=== PATIENT | male | born 1965 | race Caucasian/White ===

== ENCOUNTER 2021-05-03 20:57 | Emergency (ER) | payer MEDICAID ==
[2021-05-03] MEDS ORDERED: Diphtheria,Pertussis(Acell),Tetanus Vaccine 0.5 ML Syringe IM ONE (22:26)
[2021-05-03] MEDS ORDERED: Bacitracin/Neomycin/Polymyxin B Oint 0.9 GM U/D Packet TOP ONE (22:26)
--- NOTE | 2021-05-03 22:29 | EDM.PDOC ---
ED HPI GENERAL MEDICAL PROBLEM - General Chief Complaint: Laceration Stated Complaint: hand laceration Time Seen by Provider: 05/03/21 21:38 Source of Information: Reports: Patient History Limitations: Reports: No Limitations - History of Present Illness INITIAL COMMENTS - FREE TEXT/NARRATIVE: Patient hit self on back of right hand with a hammer and split the skin open. No loss of function/sensation. Is on a blood thinner. Tetanus updated 10 years ago. No other injuries. - Related Data Allergies Allergy/AdvReac Type Severity Reaction Status Date / Time No Known Allergies Allergy Verified 05/03/21 20:59 Home Meds: Home Meds Simvastatin [Zocor] 40 mg PO BEDTIME 09/23/17 [History] amLODIPine [Norvasc] 2.5 mg PO BEDTIME 09/23/17 [History] Aspirin [Aspirin EC] 1 tab PO DAILY 05/03/21 [History] Montelukast [Singulair] 1 tab PO BEDTIME 05/03/21 [History] Ticagrelor [Brilinta] 1 tab PO DAILY 05/03/21 [History] carvediloL [Carvedilol] 1 tab PO BID 05/03/21 [History] hydroCHLOROthiazide [Hydrochlorothiazide] 1 tab PO DAILY 05/03/21 [History] Past Medical History Cardiovascular History: Reports: High Cholesterol, Hypertension Social & Family History - Tobacco Use Tobacco Use Status *Q: Never Tobacco User Second Hand Smoke Exposure: No - Caffeine Use Caffeine Use: Reports: Coffee - Recreational Drug Use Recreational Drug Use: No ED ROS GENERAL - Review of Systems Review Of Systems: See Below Constitutional: Reports: No Symptoms HEENT: Reports: No Symptoms Respiratory: Reports: No Symptoms Cardiovascular: Reports: No Symptoms GI/Abdominal: Reports: No Symptoms Musculoskeletal: Reports: Other (some swelling of right hand in area of injury/some tenderness. ) Skin: Reports: Wound Neurological: Reports: No Symptoms Psychiatric: Reports: No Symptoms ED EXAM, SKIN/RASH Exam: See Below Exam Limited By: No Limitations General Appearance: Alert, WD/WN, No Apparent Distress Eye Exam: Bilateral Eye: EOMI, PERRL Ears: Hearing Grossly Normal Nose: No: Nasal Deformity, Nasal Swelling, Nasal Drainage Throat/Mouth: Normal Lips, Normal Voice, No Airway Compromise Head: Atraumatic, Normocephalic Neck: Supple Respiratory/Chest: No Respiratory Distress Extremities: Normal Capillary Refill, Other (Wound noted on back of right hand near medial portion. Mild swelling. No pain in fingers. No deformity. Good ROM. NVI. V shaped laceration measuring 2cm in one direction and 3cm in another. ) Neurological: Alert, Oriented, Normal Cognition, No Motor/Sensory Deficits Psychiatric: Normal Affect Skin: Warm, Other (laceration as noted above. ) ED SKIN PROCEDURES - Laceration/Wound Repair Right Dorsal Hand Appearance: Subcutaneous, Irregular, Mildly Contaminated Distal NVT: Neuro & Vascular Intact, No Tendon Injury Anesthetic Type: Local Local Anesthesia - Lidocaine (Xylocaine): 1% Plain Local Anesthetic Volume: 5cc Skin Prep: Providone-Iodine (Betadine), Saline Exploration/Debridement/Repair: Wound Explored, Explored to Base, No Foreign Material Found, Other (minimal bleeding noted) Closed with: Sutures Lac/Wound length In cm: 5 Suture Size: 4-0 # of Sutures: 8 (5 simple, 3 mattress) Suture Type: Prolene, Simple, Mattress Drain Placement: No Sterile Dressing Applied: Nurse Tetanus Status Addressed: Yes Complications: No Course - Vital Signs Last Recorded V/S: Last Vital Signs Temp 37.1 C 05/03/21 21:06 Pulse 74 05/03/21 21:06 Resp 18 05/03/21 21:06 BP 140/95 H 05/03/21 21:06 Pulse Ox 99 05/03/21 21:06 - Orders/Labs/Meds Orders: Active Orders 24 hr Category Date Time Status Vaccines to be Administered [RC] PER UNIT ROUTINE Care 05/03/21 22:26 Ordered traMADol [Ultram] Med 05/03/21 22:30 Once 50 mg PO ONETIME ONE Meds: Medications Discontinued Medications Generic Name Dose Route Start Last Admin Trade Name Freq PRN Reason Stop Dose Admin Diphtheria/Tetanus/Acell Pertussis 0.5 ml 05/03/21 22:26 Diphtheria,Pertussis(Acell),Tetanus Vaccine 0.5 Ml Syringe IM 05/03/21 22:27 .ONCE ONE Lidocaine HCl 5 ml 05/03/21 21:38 05/03/21 21:45 Lidocaine 1% 5 Ml Sdv INJECT 05/03/21 21:39 5 ml ONETIME ONE Administration Neomycin/Polymyxin/Bacitracin 1 each 07/08/21 22:26 Bacitracin/Neomycin/Polymyxin B Oint 0.9 Gm U/D Packet TOP 05/03/21 22:27 ONETIME ONE - Re-Assessments/Exams Free Text/Narrative Re-Assessment/Exam: 05/03/21 22:28 Laceration repaired. Wound care reviewed. Tetanus updated. Departure - Departure Time of Disposition: 22:28 Disposition: Home, Self-Care 01 Condition: Good Clinical Impression: Hand laceration Qualifiers: Encounter type: initial encounter Foreign body presence: without foreign body Laterality: right Qualified Code(s): S61.411A - Laceration without foreign body of right hand, initial encounter - Discharge Information *PRESCRIPTION DRUG MONITORING PROGRAM REVIEWED*: Not Applicable *COPY OF PRESCRIPTION DRUG MONITORING REPORT IN PATIENT MELANI: Not Applicable Instructions: Laceration Care, Adult, [id number] Referrals: PCP,Unknown [Primary Care Provider] - Forms: ED Department Discharge Additional Instructions: Remove sutures in 10-12 days. Given the hands on work that you do, leaving them in longer helps avoid the wound reopening if it gets hit/pressure applied while working. Follow up for recheck if any signs of infection develop. Get your BP checked a few times over the next few weeks. It was a bit elevated tonight. If it remains elevated on the rechecks follow up with your clinic! Sepsis Event Note (ED) - Evaluation Sepsis Screening Result: No Definite Risk - Focused Exam Vital Signs: Vital Signs Temp Pulse Resp BP Pulse Ox 05/03/21 21:06 37.1 C 74 18 140/95 H 99 - My Orders Last 24 Hours: My Active Orders 05/03/21 22:26 Vaccines to be Administered [RC] PER UNIT ROUTINE 05/03/21 22:30 traMADol [Ultram] 50 mg PO ONETIME ONE - Assessment/Plan Last 24 Hours: My Active Orders 05/03/21 22:26 Vaccines to be Administered [RC] PER UNIT ROUTINE 05/03/21 22:30 traMADol [Ultram] 50 mg PO ONETIME ONE
[2021-05-03] MEDS ORDERED: traMADol 50 MG Tab PO ONE (22:30)
== END 2021-05-03 22:50 | disposition home or self-care (01) ==
LOC: LL.ED 20:57
DX: S61.411A Laceration without foreign body of right hand, initial encounter (principal); E78.00 Pure hypercholesterolemia, unspecified; I10 Essential (primary) hypertension; Z79.82 Long term (current) use of aspirin; Z79.02 Long term (current) use of antithrombotics/antiplatelets; Z23 Encounter for immunization; W26.8XXA Contact with other sharp object(s), not elsewhere classified, initial encounter
CPT/HCPCS: 12002; 90471; 90715; 99282; A9270; 99283

== ENCOUNTER 2022-01-31 11:41 | Day surgery (SDC) | payer BC ==
[~2022-01-31 11:41] MED LIST: Midazolam 1 MG/ML 2 ML SDV ONE; Propofol 200 MG/20 ML SDV ONE
[2022-01-31] MEDS ORDERED: Sodium Chloride 0.9% 10 ML Syringe FLUSH PRN (11:45)
[2022-01-31] MEDS: Lactated Ringers 1,000 ML IV SCH (12:12)
[2022-01-31] MEDS ORDERED: Propofol 200 MG/20 ML SDV ONE (12:55)
[2022-01-31] MEDS ORDERED: Midazolam 1 MG/ML 2 ML SDV ONE (12:55)
[2022-01-31 15:19] VITALS: PULSE 72
[2022-01-31 15:20] VITALS: BP 136/84
== END 2022-01-31 14:10 | disposition home or self-care (01) ==
LOC: LL.SDS 11:41
PROVIDERS: ATTEND Surgery
DX: Z12.11 Encounter for screening for malignant neoplasm of colon (principal); E78.5 Hyperlipidemia, unspecified; I10 Essential (primary) hypertension; Z98.890 Other specified postprocedural states; Z79.899 Other long term (current) drug therapy; Z79.82 Long term (current) use of aspirin
CPT/HCPCS: 00812; J2250; J2704; J7120

== ENCOUNTER 2022-07-25 20:13 | Emergency (ER) | payer BC ==
[2022-07-25] MEDS ORDERED: predniSONE 20 MG Tab PO ONE ×2 (20:14→20:47)
[2022-07-25] MEDS ORDERED: diphenhydrAMINE 25 MG Cap PO ONE (20:14)
[2022-07-25] MEDS ORDERED: Famotidine 20 MG Tab PO ONE (20:46)
[2022-07-25] MEDS ORDERED: Loratadine 10 MG Tab PO ONE (20:46)
== END 2022-07-25 21:10 | disposition home or self-care (01) ==
LOC: LL.ED 20:13
DX: L50.9 Urticaria, unspecified (principal); Z79.899 Other long term (current) drug therapy; Z79.82 Long term (current) use of aspirin
CPT/HCPCS: 99282; 99283; A9270; J7512